=== PATIENT | male | born 1985 | race Two or more races ===

== ENCOUNTER 2019-07-05 06:00 | Emergency (ER) | payer MEDICAID ==
[~2019-07-05] VITALS: Ht 170.2 cm; Wt 72.0 kg
[~2019-07-05 06:00] MED LIST: ALBU18HF2 INH; ONDA4TAB6 PO
[2019-07-05] MEDS ORDERED: ipratropium/albuterol 3ml nebule NEB ONE ×2 (06:40→08:05)
[2019-07-05] MEDS ORDERED: PRED20TA PO (06:47)
--- NOTE | 2019-07-05 08:23 | NUR ---
WAITING SECOND BREATHING TX, NO ACUTE DISTRESS.C/O C/P WITH INSPIRATION, PROVIDER AWARE.
[2019-07-05] MEDS ORDERED: ALBU18HF2 INH (08:37)
[2019-07-05 08:56] VITALS: BP 111/67
== END 2019-07-05 08:58 | disposition home or self-care (01) ==
LOC: ER 06:00
DX: J45.901 Unspecified asthma with (acute) exacerbation (principal); Z79.899 Other long term (current) drug therapy
CPT/HCPCS: 71045; 93005; 94010; 94640; 94760; 99284

== ENCOUNTER 2021-03-05 13:09 | Emergency (ER) | payer MEDICAID ==
[~2021-03-05] VITALS: Ht 170.2 cm; Wt 65.3 kg
[2021-03-05 13:55] LABS: BASOPHILS % (AUTO) 0.3 % (0-1); EOSINOPHILS % (AUTO) 0.4 % (0-6); HEMATOCRIT 42.1 % (42.0-52.0); HEMOGLOBIN 13.8 g/dl (14.0-17.9); LYMPHOCYTES # (AUTO) 0.9 X10'3 (1.1-4.8); LYMPHOCYTES % (AUTO) 29.4 % (21-51); MEAN CORPUSCULAR HGB CONC 32.8 g/dL (33.0-36.5); MEAN CORPUSCULAR VOLUME 88.4 FL (78-98); MEAN PLATELET VOLUME 8.6 FL (7.4-10.4); MONOCYTES # (AUTO) 0.4 X10'3 (0-0.9); MONOCYTES % (AUTO) 11.8 % (2-12); NEUTROPHILS # (AUTO) 1.8 X10'3 (1.8-7.7); NEUTROPHILS % (AUTO) 58.1 % (42-75); PLATELET COUNT 189 X10'3 (140-440); RED BLOOD COUNT 4.76 X10'6 (4.70-6.10); RED CELL DISTRIBUTION WIDTH 13.7 % (11.5-14.5); WHITE BLOOD COUNT 3.1 X10'3 (4.5-11.0)
[2021-03-05 14:05] LABS: ALANINE AMINOTRANSFERASE 36 U/L (12-78); ALBUMIN 3.5 G/DL (3.4-5.0); ALBUMIN/GLOBULIN RATIO 0.8 (1.1-1.5); ALKALINE PHOSPHATASE 67 IU/L (46-116); ANION GAP 10 (8-16); ASPARTATE AMINO TRANSFERASE 25 U/L (10-37); BLOOD UREA NITROGEN 11 MG/DL (7-18); BUN/CREATININE RATIO 9.2 (5.4-32.0); CALCIUM 8.5 MG/DL (8.5-10.1); CHLORIDE 107 MMOL/L (99-107); GLUCOSE 97 MG/DL (70-104); POTASSIUM 3.9 MMOL/L (3.5-5.1); SODIUM 141 MMOL/L (135-145); TOTAL CARBON DIOXIDE 23.7 MMOL/L (24-32); TOTAL PROTEIN 7.9 G/DL (6.4-8.2); eGFR 69 ML/MIN
[2021-03-05] MEDS ORDERED: predniSONE 20 mg tablet PO ONE (14:20)
[2021-03-05] MEDS ORDERED: PRED20TA PO (15:39)
--- NOTE | 2021-03-05 15:55 | NUR ---
Instructed patient how to use spacer with his inhaler with proper technique to help prevent coughing. Also administered an aerosol mask for his nebulizer treatments at home.
[2021-03-05 16:09] VITALS: BP 117/78
== END 2021-03-05 16:05 | disposition home or self-care (01) ==
LOC: ER 13:09
DX: R51.9 Headache, unspecified (principal); U07.1 COVID-19; J45.901 Unspecified asthma with (acute) exacerbation; R50.9 Fever, unspecified; R06.02 Shortness of breath; R05 Cough; Z72.89 Other problems related to lifestyle; Z79.899 Other long term (current) drug therapy
CPT/HCPCS: 36415; 71045; 80053; 85025; 87635; 93005; 99285; C9803; J7512

== ENCOUNTER 2021-08-12 21:00 | Emergency (ER) | payer MEDICAID ==
[~2021-08-12] VITALS: Ht 170.2 cm; Wt 71.9 kg
[2021-08-12 21:11] VITALS: BP 143/91
--- NOTE | 2021-08-12 21:50 | NUR ---
DR HICKS VERBALIZED ORDERS FOR BLOOD WORK , COVID SWAB, U-TOX
[2021-08-12 22:07] LABS: URINE AMPHETAMINE SCREEN NEGATIVE (Neg); URINE BARBITUATE SCREEN NEGATIVE (Neg); URINE BENZODIAZEPINES SCREEN NEGATIVE (Neg); URINE CANNABINOID SCREEN NEGATIVE (Neg); URINE COCAINE SCREEN NEGATIVE (Neg); URINE METHADONE SCREEN NEGATIVE (Neg); URINE OPIATE SCREEN NEGATIVE (Neg); URINE PHENCYCLIDINE SCREEN NEGATIVE (Neg)
[2021-08-12 22:17] LABS: BASOPHILS # (AUTO) 0.1 X10'3 (0-0.2); BASOPHILS % (AUTO) 1.1 % (0-1); EOSINOPHILS # (AUTO) 0.2 X10'3 (0-0.9); EOSINOPHILS % (AUTO) 4.6 % (0-6); HEMATOCRIT 43.9 % (42.0-52.0); HEMOGLOBIN 14.4 g/dl (14.0-17.9); LYMPHOCYTES # (AUTO) 1.5 X10'3 (1.1-4.8); LYMPHOCYTES % (AUTO) 27.3 % (21-51); MEAN CORPUSCULAR HGB CONC 32.8 g/dL (33.0-36.5); MEAN CORPUSCULAR VOLUME 91.4 FL (78-98); MEAN PLATELET VOLUME 7.9 FL (7.4-10.4); MONOCYTES # (AUTO) 0.5 X10'3 (0-0.9); MONOCYTES % (AUTO) 8.5 % (2-12); NEUTROPHILS # (AUTO) 3.1 X10'3 (1.8-7.7); NEUTROPHILS % (AUTO) 58.5 % (42-75); PLATELET COUNT 277 X10'3 (140-440); RED CELL DISTRIBUTION WIDTH 12.9 % (11.5-14.5); WHITE BLOOD COUNT 5.3 X10'3 (4.5-11.0)
[2021-08-12 22:33] LABS: ALANINE AMINOTRANSFERASE 32 U/L (12-78); ALKALINE PHOSPHATASE 76 IU/L (46-116); ANION GAP 9 (8-16); ASPARTATE AMINO TRANSFERASE 18 U/L (10-37); BILIRUBIN,TOTAL 0.5 MG/DL (0.1-1.0); BLOOD UREA NITROGEN 12 MG/DL (7-18); BUN/CREATININE RATIO 10.1 (5.4-32.0); CHLORIDE 105 MMOL/L (99-107); CREATININE 1.19 MG/DL (0.60-1.10); GLUCOSE 117 MG/DL (70-104); POTASSIUM 3.9 MMOL/L (3.5-5.1); SODIUM 142 MMOL/L (135-145); TOTAL CARBON DIOXIDE 28.4 MMOL/L (24-32); TOTAL PROTEIN 7.9 G/DL (6.4-8.2); eGFR 69 ML/MIN
[2021-08-12 22:48] LABS: CALCIUM 9.1 MG/DL (8.5-10.1)
[2021-08-12 22:50] LABS: D-DIMER < 0.19 MG/L FEU (0-0.50)
== END 2021-08-13 00:49 | disposition home or self-care (01) ==
LOC: ER 21:01
DX: F41.9 Anxiety disorder, unspecified (principal); Z20.822 Contact with and (suspected) exposure to COVID-19; R20.0 Anesthesia of skin; Z72.89 Other problems related to lifestyle; Z79.899 Other long term (current) drug therapy
CPT/HCPCS: 36415; 80053; 80305; 82948; 84145; 85025; 85379; 87635; 93005; 99284; C9803

== ENCOUNTER 2022-05-25 08:31 | Emergency (ER) | payer MEDICAID ==
[~2022-05-25] VITALS: Ht 167.6 cm; Wt 72.7 kg
[2022-05-25 08:37] VITALS: BP 132/91
== END 2022-05-25 09:31 | disposition home or self-care (01) ==
LOC: ER 08:32
DX: S90.111A Contusion of right great toe without damage to nail, initial encounter (principal); W19.XXXA Unspecified fall, initial encounter; Y93.89 Activity, other specified; Y92.89 Other specified places as the place of occurrence of the external cause; Y99.8 Other external cause status
CPT/HCPCS: 73630; 99283